=== PATIENT | female | born 2000 | race Caucasian/White ===

== ENCOUNTER 2019-01-30 18:44 | Emergency (ER) | payer OTHER ==
[~2019-01-30] VITALS: Ht 175.3 cm; Wt 174.0 kg
[2019-01-30 18:50] VITALS: BP 177/112
[2019-01-30] MEDS ORDERED: IBUPROFEN 800 MG TABLET PO ONE (20:30)
[2019-01-30] MEDS ORDERED: METHOCARBAMOL 750 MG TABLET PO ONE (20:30)
[2019-01-30] MEDS ORDERED: OXYcodone/APAP 10/325MG TABLET PO ONE (20:30)
[2019-01-30 20:37] LABS: MICROSCOPIC NOT IND
[2019-01-30 20:40] LABS: CULTURE INDICATED? NO
[2019-01-30] MEDS ORDERED: IBUPROFEN 800 MG TABLET ONE (21:13)
[2019-01-30] MEDS ORDERED: METHOCARBAMOL 750 MG TABLET ONE (21:13)
[2019-01-30] MEDS ORDERED: OXYcodone/APAP 10/325MG TABLET ONE (21:13)
== END 2019-01-30 22:06 | disposition home or self-care (01) ==
LOC: ED 21:50
DX: S39.012A Strain of muscle, fascia and tendon of lower back, initial encounter (principal); Z90.89 Acquired absence of other organs; W18.30XA Fall on same level, unspecified, initial encounter; Y93.89 Activity, other specified; Y92.89 Other specified places as the place of occurrence of the external cause; Y99.8 Other external cause status
CPT/HCPCS: 72131; 81003; 93005; 99284